=== PATIENT | female | born 1985 | race Caucasian/White ===

== ENCOUNTER 2017-06-13 09:44 | Emergency (ER) | payer OTHER ==
[2017-06-13] MEDS ORDERED: Ondansetron HCl/PF 4 MG/2 ML Vial ONE (10:27)
[2017-06-13] MEDS ORDERED: Promethazine HCl 25 MG/ML VIAL ONE (10:27)
[2017-06-13 10:58] LABS: #Lymphocytes 1.6 thou/uL (1.20-3.40); #Monocytes 0.3 thou/uL (0.11-0.59); #Neutrophils 2.4 thou/uL (1.40-6.50); %Basophils 0.9 % (0.0-1.0); %Eosinophils 0.7 % (0.0-10.0); %Lymphocytes 36.6 % (21.0-51.0); %Monocytes 6.5 % (0.0-10.0); Hematocrit 35.4 % (36.0-47.0); Mean Platelet Volume 6.8 fL (7.4-10.4); White Blood Cell (WBC) Count 4.4 thou/uL (4.8-10.8)
[2017-06-13 10:58] LABS: Bilirubin Negative (Negative); Blood, Urine Negative (Negative); Glucose, Urine (Dipstick) Negative (Negative); Ketone, Urine Negative (Negative); Nitrite Negative (Negative); Protein, Urine (Dipstick) Negative (Neg-Trace); Urobilinogen 0.2 mg/dL (0.2-1.0)
[2017-06-13 11:28] LABS: ALT (SGPT) 12 U/L (8-55); AST (SGOT) 26 U/L (5-34); Alkaline Phosphatase 120 U/L (40-150); Anion Gap 17 mmol/L (10-20); BUN (Urea Nitrogen) 7 mg/dL (7.0-18.7); Bilirubin, Total 0.5 mg/dL (0.2-1.2); Calc. Creatinine Clearance 0 mL/min (70-130); Calcium 9.3 mg/dL (7.8-10.44); Carbon Dioxide 22 mmol/L (22-29); Chloride 100 mmol/L (98-107); Estimated GFR-MDRD Greater than 90; Globulin 3.5 g/dL (2.4-3.5); Protein, Total 8.2 g/dL (6.0-8.3)
== END 2017-06-13 12:00 | disposition home or self-care (01) ==
LOC: ERS 09:44
DX: R11.2 Nausea with vomiting, unspecified (principal); D64.9 Anemia, unspecified; F17.210 Nicotine dependence, cigarettes, uncomplicated
CPT/HCPCS: 80053; 81003; 81025; 85025; 96365; 96375; J2405; J2550